=== PATIENT | female | born 1965 | race Caucasian/White ===

== ENCOUNTER → 2020-07-07 16:47 | Outpatient (CLI) | payer BC, SELFPAY ==
--- NOTE | ~2020-07-07 | XR_ITS ---
EXAMINATION: [id number] EXAM DATE: 07/07/2020 17:03 INDICATION: Initial encounter following injury, with pain of the cervical spine since 2004, progress ing. TECHNIQUE: Cervical spine frontal, lateral, lateral swimmers, and open-mouth odontoid projections. C omparison is made to prior examination from 11/04/2006. FINDINGS: There is moderate disc disease at C5-6 and 6-7, mild at C4-5. Straightening of normal cerv ical lordosis could be positional or spasm. There is some bulky upper cervical facet arthropathy. The re is evidence of some amount of lower cervical neural foraminal stenosis due to uncovertebral joint arthropathy. Lung apices are clear. The odontoid process is intact. The lateral masses of C1 line up with C2. Prevertebral soft tissue and pre-dens space are within normal limits. There has been progre ssion in spondylosis compared to 2006. IMPRESSION: 1. Moderate cervical spondylosis. Reviewed, dictated and finalized at location A. [employer]
== END ==
PROVIDERS: PCP Physician Assistant; Visit Provider Physician Assistant
DX: M47.22 Other spondylosis with radiculopathy, cervical region (principal)
CPT/HCPCS: 72040

== ENCOUNTER 2021-03-26 15:31 | Emergency (ER) | payer BC, SELFPAY ==
[2021-03-26 15:41] VITALS: BP 139/91; PULSE 88; RESP 18; TEMP 36.8; O2SAT 99
--- NOTE | 2021-03-26 16:10 | ED.SKABFB ---
HPI - Skin/Abscess/Foreign Bdy General Chief complaint: Skin/Abscess/Foreign Body Stated complaint: Tick Bite Time Seen by Provider: 03/26/21 16:10 Source: patient Mode of arrival: ambulatory Limitations: no limitations History of Present Illness HPI narrative: Allison Bangura is a 55 yo feale with PMH of HTN, DM, depression, who comes to [facility] with complaints of a circular rash around tick bite area that occurred while they are on vacation in [place] last this last week-was hiking with a backpack and discovered yesterday in the shower a tick on her left upper chest. She now has a small 1 x 2 area that is tender but not indurated. Her primary doctor told her to come to urgent care Related Data Home Medications Medication Instructions Recorded Confirmed amlodipine 5 mg tablet 5 mg PO DAILY 08/27/19 09/22/20 blood sugar diagnostic #10 each 08/27/19 09/22/20 blood-glucose meter #1 each 08/27/19 09/22/20 cyclobenzaprine 10 mg tablet 10 mg PO ONCE tablet 08/27/19 09/22/20 enalapril maleate 10 mg tablet 10 mg PO BID 08/27/19 09/22/20 lancets 30 gauge #25 each 08/27/19 09/22/20 metformin 500 mg tablet 500 mg PO BID 08/27/19 09/22/20 venlafaxine 150 mg 150 mg PO DAILY 08/27/19 09/22/20 capsule,extended release 24 hr Allergies Allergy/AdvReac Type Severity Reaction Status Date / Time Penicillins Allergy Unknown HIVES Verified 09/22/20 09:05 CHILD Sulfa (Sulfonamide Allergy Unknown HIVES Verified 09/22/20 09:05 Antibiotics) CHILD Review of Systems Review of Systems: CONSTITUTIONAL: Denies fever, chills, sweats. EYES: Denies visual changes, redness, discharge. ENT: Denies rhinorrhea, congestion, sore throat, otalgia. CARDIOVASCULAR: Denies chest pain, palpitations, edema. RESPIRATORY: Denies dyspnea, wheezing, cough GASTROINTESTINAL: Denies abdominal pain, nausea, vomiting, diarrhea. GENITOURINARY: Denies dysuria, hematuria, abnormal discharge SKIN: Denies rash or itching. Rash from tick bite NEUROLOGIC: Denies numbness, or focal weakness. PSYCHIATRIC: Denies anxiety or depression. [facility] Past Medical History Medical History (Updated 03/26/21 @ 16:21 by Radha Vieira CNP) Diabetes mellitus type 2 in nonobese Headache Hypertension Estevez syndrome Surgical History Surgical History H/O breast surgery History of total hysterectomy History of tubal ligation Family History Family History Mother Cerebrovascular accident Diabetes mellitus Hypertension Osteoporosis Migraine Depression Heart disease Hyperlipidemia Mother Cerebrovascular accident Family history of type 2 diabetes mellitus Sibling Family history of malignant neoplasm of cervix Other Carcinoma of colon Family history of lung cancer Family history of malignant neoplasm of breast Family history of malignant neoplasm of urinary bladder Family history of malignant neoplasm of uterus Social History Social History Years smoked: 38 Smoking status: Current every day smoker Tobacco type: cigarettes Second hand tobacco smoke exposure: Yes Alcohol intake: current Comments At time of signature, I agree with nursing past medical, surgical, social and family history. There is no relevant family history pertinent to the presenting complaint. Exam Narrative: GENERAL: This is a well-nourished, well-developed patient, in mild distress. HEAD: normocephalic, atraumatic. EYES: Sclera clear/white. Vision is grossly intact. EARS: External ears normal, Hearing grossly intact. NOSE: External nose normal without nasal discharge, nares without redness, no rhinorrhea. THROAT: Mucous membranes moist, NECK: Neck supple, CARDIOVASCULAR: Regular rate and rhythm without murmurs, gallops, or rubs. RESPIRATORY: Clear to auscultation. Breath sounds equal
== END 2021-03-26 16:38 | disposition home or self-care (01) ==
PROVIDERS: Emergency Provider Nurse Practitioner; PCP Physician Assistant
DX: S20.362A Insect bite (nonvenomous) of left front wall of thorax, initial encounter (principal); W57.XXXA Bitten or stung by nonvenomous insect and other nonvenomous arthropods, initial encounter; F17.210 Nicotine dependence, cigarettes, uncomplicated; E11.9 Type 2 diabetes mellitus without complications; I10 Essential (primary) hypertension
CPT/HCPCS: 99213; G0463

== ENCOUNTER → 2021-12-24 11:17 | Outpatient (CLI) | payer BC, SELFPAY ==
--- NOTE | ~2021-12-24 | MM_ITS ---
EXAMINATION: MM screening rhoda BI w ashely HISTORY: Screening mammogram TECHNIQUE: Craniocaudal and mediolateral oblique 3-D tomosynthesis images were obtained and synthetic 2-D images were generated. CAD analysis was submitted and interpreted. COMPARISON: 02/01/2019 bilateral diagnostic mammography 06/20/2017 bilateral diagnostic mammogram and Limited bilateral breast ultrasound 05/12/2017 bilateral screening mammogram BREAST PARENCHYMAL COMPOSITION: There are scattered areas of fibroglandular density. FINDINGS: Right breast: New circumscribed 2 x 5 mm opacity at mid depth in the inner aspect of the lower outer right breast. Diagnostic right mammogram and right breast ultrasound examination are recommended. Left breast: Several stable up to 8 mm or smaller circumscribed low-density opacities are noted in the outer, mid and inner left breast, benign in appearance. No suspicious mass, architectural distortion, malignant calcification, skin thickening or retraction of the left breast is detected. IMPRESSION: 1. New circumscribed 2 x 5 mm opacity at mid depth in inner aspect of lower outer right breast 2. Diagnostic right mammogram and right breast ultrasound examination are recommended BI-RADS Category 0: Incomplete: Needs additional imaging evaluation. Reviewed, dictated and finalized at location A. IMPRESSION: 1. New circumscribed 2 x 5 mm opacity at mid depth in inner aspect of lower out er right breast 2. Diagnostic right mammogram and right breast ultrasound examination are recom mended BI-RADS Category 0: Incomplete: Needs additional imaging evaluation.
== END ==
PROVIDERS: PCP Physician Assistant; Visit Provider Physician Assistant
DX: Z12.31 Encounter for screening mammogram for malignant neoplasm of breast (principal); F17.200 Nicotine dependence, unspecified, uncomplicated; R92.8 Other abnormal and inconclusive findings on diagnostic imaging of breast
CPT/HCPCS: 77063; 77067

== ENCOUNTER → 2022-03-30 10:20 | Outpatient (CLI) | payer BC, SELFPAY ==
--- NOTE | ~2022-03-30 | MMUS_ITS ---
EXAMINATION: MM diagnostic rhoda RT w ashely, US breast RT limited HISTORY: New circumscribed 2 x 5 mm opacity at mid depth in inner aspect of lower outer right breast reported on 12/24/2021 screening mammogram TECHNIQUE: Full field and spot ML, MLO and CC 3-D tomosynthesis images of the right breast were perfo rmed and synthetic 2-D images were generated. CAD analysis was submitted and interpreted. High resolu tion upper outer and lower-outer quadrant right breast ultrasound was performed. COMPARISON: 12/24/2021 bilateral screening mammogram BREAST PARENCHYMAL COMPOSITION: There are scattered areas of fibroglandular density. FINDINGS: MAMMOGRAPHIC FINDINGS: Approximately 3 x 8.5 mm circumscribed opacity is noted overlying the lateral subareolar area. Stable approximately 2 x 5 mm opacity at mid depth in inner aspect of lower outer right breast. ULTRASOUND: In the lateral subareolar area there is a multi septated cyst measuring approximately 7 x 4.4 x 8.4 m m, without internal vascularity, with through transmission, benign. No suspicious mass or shadowing is detected elsewhere in the upper outer or lower outer quadrants. IMPRESSION: 1. Benign finding 2. Routine annual mammographic screening is recommended BI-RADS Category 2: Benign finding(s). Reviewed, dictated and finalized at location A. IMPRESSION: 1. Benign finding 2. Routine annual mammographic screening is recommended BI-RADS Category 2: Benign finding(s).
== END ==
PROVIDERS: PCP Physician Assistant
DX: R92.8 Other abnormal and inconclusive findings on diagnostic imaging of breast (principal)
CPT/HCPCS: 76642; 77061; 77065; G0279

== ENCOUNTER 2023-06-17 13:01 | Emergency (ER) | payer BC, SELFPAY ==
--- NOTE | 2023-06-17 13:05 | ED.URI ---
HPI - URI/Sore Throat General Chief Complaint: Upper Respiratory Infection Stated Complaint: headache,left eye irritation,cough Time Seen by Provider: 06/17/23 13:19 Source: patient and RN notes reviewed Mode of arrival: ambulatory Limitations: no limitations History of Present Illness HPI Narrative: 57-year-old female presents concern for 6 day history of cough, nasal congestion and rhinorrhea. She reports she has taking cold medicine twice over the last week without relief. She reports chills and sweats without fever. She reports she feels like her cold is moving to her chest. MD elicited complaint: cough Related Data Home Medications Medication Instructions Recorded Confirmed blood sugar diagnostic (AktivitoTouch #10 ea 08/27/19 06/17/23 Ultra Blue Test Strip) blood-glucose meter (AktivitoTouch #1 ea 08/27/19 06/17/23 Ultra2 Meter kit) lancets 30 gauge (AktivitoTouch Delica #25 ea 08/27/19 06/17/23 Lancets) metformin 500 mg tablet 500 mg PO BID 08/27/19 06/17/23 enalapril maleate 10 mg tablet 10 mg PO DAILY 09/20/22 06/17/23 Allergies Allergy/AdvReac Type Severity Reaction Status Date / Time Penicillins Allergy Unknown HIVES Verified 09/20/22 08:57 CHILD Sulfa (Sulfonamide Allergy Unknown HIVES Verified 09/20/22 08:57 Antibiotics) CHILD Review of Systems Review of Systems: CONSTITUTIONAL: Denies malaise, fever. Reports chills, sweats EYES: Denies visual changes, redness, or discharge. ENT: Reports rhinorrhea, congestion. Denies sinus pain, otalgia and sore throat. CARDIOVASCULAR: Denies chest pain, palpitations, or edema. RESPIRATORY: Reports cough and chest congestion. Denies dyspnea. GASTROINTESTINAL: Denies abdominal pain, nausea, vomiting, diarrhea SKIN: Denies rash or itching. MUSCULOSKELETAL: Denies myalgia. NEUROLOGIC: Reports headache. All systems reviewed & are unremarkable except as noted in HPI and below PMFSH Past Medical History Medical History Diabetes mellitus type 2 in nonobese Headache Hypertension Estevez syndrome Tobacco abuse Surgical History Surgical History H/O breast surgery History of total hysterectomy History of tubal ligation Family History Family History Mother Cerebrovascular accident Diabetes mellitus Hypertension Osteoporosis Migraine Depression Heart disease Hyperlipidemia Mother Cerebrovascular accident Family history of type 2 diabetes mellitus Sibling Family history of malignant neoplasm of cervix Other Carcinoma of colon Family history of lung cancer Family history of malignant neoplasm of breast Family history of malignant neoplasm of urinary bladder Family history of malignant neoplasm of uterus Social History Social History Years smoked: 38 Smoking status: Current every day smoker Tobacco type: cigarettes Second hand tobacco smoke exposure: Yes Alcohol intake: current Comments At time of signature, agree with nursing past medical, surgical, social and family history. There is no relevant family history pertinent to the presenting complaint Exam Narrative: GENERAL: Well-appearing, well-nourished, and in no acute distress. HEAD: Normocephalic EYES: PERRLA, conjunctivae clear ENT: Nares clear. Mucous membranes moist. TM pearly carpenter with sharp light reflex bilaterally; no tragal tenderness. Oropharynx not erythematous without lesions. Tonsils not enlarged and without exudate, no drooling, no hoarseness, no trismus, uvula midline. NECK: Supple. No lymphadenopathy CHEST: Clear to auscultation, breath sounds equal. No wheezing, rhonchi, rales, or stridor. No respiratory distress, speaks in full sentences. HEART: Regular rate and rhythm. No murmur heard. SKIN: Warm, dry, no rash.
[2023-06-17 13:13] VITALS: BP 179/100; PULSE 88; RESP 16; TEMP 36.8; O2SAT 99
[2023-06-17 13:14] VITALS: BP 179/100; PULSE 88; RESP 16; TEMP 36.8; O2SAT 99
== END 2023-06-17 13:32 | disposition home or self-care (01) ==
PROVIDERS: Emergency Provider Nurse Practitioner; PCP Physician Assistant
DX: J40 Bronchitis, not specified as acute or chronic (principal); F17.210 Nicotine dependence, cigarettes, uncomplicated; E11.9 Type 2 diabetes mellitus without complications; I10 Essential (primary) hypertension
CPT/HCPCS: 99213; G0463

== ENCOUNTER 2023-10-03 12:19 | Outpatient (CLI) | payer OTHER, SELFPAY ==
--- NOTE | ~2023-10-03 | CT_ITS ---
CT Scan of the Chest without Contrast: Clinical Indication: Lung cancer screening, nicotine dependence Technique: Contiguous sections were acquired throughout the chest without intravenous contrast. Dose reduction technique was used on this scan by utilizing automated exposure control and iterative recon struction technique. The dose-length product (DLP) was 133.35 mGy-cm. Findings: There is no evidence of any significant mediastinal, hilar or axillary lymphadenopathy. The mediastin al soft tissues appear normal. There is no evidence of pleural or pericardial effusion. The lungs are clear. No pulmonary nodules or infiltrates are noted. Images through the upper abdomen reveal no abnormalities. Impression: Lung RADS 1: Negative. 12 month follow-up screening CT advised. Reviewed, dictated and finalized at location . Impression: Lung RADS 1: Negative. 12 month follow-up screening CT advised.
== END 2023-10-03 12:20 | disposition home or self-care (01) ==
LOC: ANHIMG 12:20
PROVIDERS: PCP Physician Assistant; Visit Provider Physician Assistant
DX: Z12.2 Encounter for screening for malignant neoplasm of respiratory organs (principal); Z87.891 Personal history of nicotine dependence
CPT/HCPCS: 71271

== ENCOUNTER 2023-10-29 08:00 | Outpatient (CLI) | payer OTHER, SELFPAY ==
--- NOTE | ~2023-10-29 | MR_ITS ---
EXAMINATION: MR brain/brain stem wo con DATE: 10/29/2023 08:53 INDICATION: Disorientation. Acute confusion. TECHNIQUE: Magnetic resonance imaging (MRI) of the brain and brainstem was performed without intraven ous contrast. COMPARISON: Brain MRI 02/26/2016 FINDINGS: There is no intracranial hemorrhage, acute infarction, or abnormal intracranial mass lesion . There are scattered areas of nonspecific increased T2-weighted signal intensity in the cerebral whi te matter. The ventricles are normal in size. There is minimal mucosal thickening in sphenoid sinus. The orbits are normal. The mastoid air cells are normal. IMPRESSION: 1. Mild nonspecific cerebral white matter disease, which likely represents chronic small vessel ische humphrey disease, worsened from 02/26/2016. Reviewed, dictated and finalized at location E. IMPRESSION: 1. Mild nonspecific cerebral white matter disease, which likely represents mat maker felicity small vessel ischemic disease, worsened from 02/26/2016.
== END 2023-10-29 08:01 ==
LOC: MICIMG 08:01
PROVIDERS: PCP Physician Assistant; Visit Provider Physician Assistant
DX: R41.0 Disorientation, unspecified (principal); R90.82 White matter disease, unspecified
CPT/HCPCS: 70551

== ENCOUNTER 2024-06-05 17:33 | Emergency (ER) | payer OTHER, SELFPAY ==
--- NOTE | 2024-06-05 17:37 | ED_ITS ---
HPI - URI/Sore Throat General Chief Complaint: Upper Respiratory Infection Stated Complaint: Sinus Time Seen by Provider: 06/05/24 17:37 Source: patient Mode of arrival: ambulatory Limitations: no limitations History of Present Illness HPI Narrative: Patient is a 58-year-old female who presents with vertigo, vomiting and diarrhea started and resolved yesterday followed by headache, chills, fatigue, nasal congestion, sore throat, and cough has started today. Has not taken anything for symptoms Related Data Home Medications Medication Instructions Recorded Confirmed metformin 500 mg tablet 500 mg PO BID 08/27/19 06/05/24 enalapril maleate 10 mg tablet 10 mg PO DAILY 09/20/22 06/05/24 Allergies Allergy/AdvReac Type Severity Reaction Status Date / Time Penicillins Allergy Unknown HIVES Verified 06/05/24 18:04 CHILD Sulfa (Sulfonamide Allergy Unknown HIVES Verified 06/05/24 18:04 Antibiotics) CHILD Review of Systems Review of Systems: All systems reviewed & are unremarkable except as noted in HPI and below Constitutional: Constitutional: Denies body ache(s), Reports chills, Denies fatigue, Denies fever(s), Reports headache(s), Denies malaise and Denies weakness Eyes: Eyes: Denies blurry vision, Denies itchy eyes and Denies loss of vision ENT: Denies otalgia, Denies headache(s), Reports nasal congestion, Denies sinus pain and Reports sore throat Cardiovascular: Cardiovascular: Denies chest pain, Denies irregular heart rhythm and Denies dyspnea Respiratory: Respiratory: Reports cough and Denies dyspnea Gastrointestinal: Gastrointestinal: Denies abdominal pain, Reports diarrhea, Denies nausea and Reports vomiting Musculoskeletal: Musculoskeletal: Denies back pain, Denies myalgias and Denies arthralgias Integumentary/Breasts: Skin/Breast: Denies pruritus and Denies rash Neurologic: Reports vertigo, Denies headache(s), Denies loss of vision and Denies weakness Psychiatric: Psychiatric: Reports no additional psychiatric complaints Endocrine: Endocrine: Denies fatigue Allergic/Immunologic: Allergic/Immunologic: Denies itchy eyes PMFSH Past Medical History Medical History Diabetes mellitus type 2 in nonobese Headache Hypertension Estevez syndrome Tobacco abuse Surgical History Surgical History H/O breast surgery History of total hysterectomy History of tubal ligation Family History Family History Mother Cerebrovascular accident Diabetes mellitus Hypertension Osteoporosis Migraine Depression Heart disease Hyperlipidemia Mother Cerebrovascular accident Family history of type 2 diabetes mellitus Sibling Family history of malignant neoplasm of cervix Other Carcinoma of colon Family history of lung cancer Family history of malignant neoplasm of breast Family history of malignant neoplasm of urinary bladder Family history of malignant neoplasm of uterus Social History Social History Years smoked: 38 Smoking status: Current every day smoker Tobacco type: cigarettes Second hand tobacco smoke exposure: Yes Alcohol intake: current Comments At time of signature, agree with nursing past medical, surgical, social and family history. There is no relevant family history pertinent to the presenting complaint. Exam Const: General: cooperative, healthy appearing, comfortable, no acute distress and well nourished Nutritional Appearance: well nourished Orientation/consciousness: patient oriented x3 Limitations: no limitations HENMT: Head: normal to inspection, normocephalic and atraumatic Ears: hearing grossly normal bilaterally, external ears normal, TM's normal bilaterally, EAC's normal and no periauricular adenopathy Face/Nose/Sinus: Normal external nose present, Abnormal mucous membranes and turbinates present erythematous bilateral and diffuse, normal facial exam, sinuses nontender and face symmetric Face and sinus: normal facial exam, sinuses nontender and face symmetric Mouth: Yes Normal oral and palatal mucosa present, Yes lip normal, Yes tongue normal, Yes Normal salivary glands and ducts present, Yes oropharynx normal and Yes moist mucous membranes Teeth and gingiva: dentition normal Throat: posterior oropharynx normal, tonsils normal and uvula midline Eyes: General: appearance normal, both eyes and all related structures Alignment and Position: alignment normal and position normal Periorbital: periorbital findings normal Eyelids: eyelids normal Pupils: Equal, round and reactive pupils present Neck: Neck: normal visual inspection, full ROM, no lymphadenopathy and supple Chest: Chest palpation & inspection: normal inspection of the chest and normal palpation of entire chest wall Resp: Effort & Inspection: normal respiratory effort and able to speak in complete sentences Auscultation: clear to auscultation bilaterally, no crackles, no rales, no rhonchi and no wheezes Cardio: Rate: regular rate Rhythm: regular rhythm Heart sounds: S1 normal heart sound present and S2 normal heart sound present GI: Inspection: normal to inspection Skin: General skin exam: normal color and no rashes or lesions noted Neuro: General: patient oriented x3 and moves all extremities Cranial nerves: Yes Equal, round and reactive pupils present Speech: normal speech Gait exam (Neuro): Normal gait present Extrem: General: normal to inspection, full ROM and no edema Psych: Appearance: grossly normal and well kempt Mental Status: mental status grossly normal Speech and movement: Normal speech and movement present Affect: normal affect Attitude: cooperative Thought process: Normal thought process present Course Course Emergency Course: Patient is aware of diagnosis, understands and agrees to treatment plan. Ant icipatory guidance given. Patient agrees to follow-up as directed and is aware of reasons to seek care at the emergency department. Portions of this record may have been created with voice recognition software Level of Care: Express Care Visit Vital Signs Vital signs: Vital Signs Temperature 36.2 C L 06/05/24 17:43 Pulse Rate 98 06/05/24 17:43 Respiratory Rate 16 06/05/24 17:43 Blood Pressure 158/93 H 06/05/24 17:43 Pulse Oximetry 99 06/05/24 17:43 Oxygen Delivery Room Air 06/05/24 17:43 Temperature 36.2 C L 06/05/24 17:43 Pulse Rate 98 06/05/24 17:43 Respiratory Rate 16 06/05/24 17:43 Blood Pressure 158/93 H 06/05/24 17:43 Pulse Oximetry 99 06/05/24 17:43 Oxygen Delivery Room Air 06/05/24 17:43 Reviewed MDM - URI/Sore Throat MDM Narrative Medical decision making narrative: Discharge instructions reviewed with patient, as well as provided in writing per nursing staff. The instructions also include specific and strict return/GO TO THE ER as well as f/u information. All questions have been answered, and the patient deny any further questions with discharge and discharge plan. Differential diagnosis considered: Gottlieb virus, strep pharyngitis, allergic rhinitis, upper respiratory tract infection, sinusitis, rhinosinusitis, nasopharyngitis. viral pharyngitis, otitis media, otitis externa, otitis effusion, foreign body, cerumen impaction, viral syndrome, and influenza.? Exam findings show no acute concerns or changes; patient is non-toxic appearing and is in no distress.? Patient is appropriate for outpatient treatment and follow- up.? Medical Records Attestation: I reviewed the patient's medical records. Lab Data Attestation: I reviewed the patient's lab results. Labs: Lab Results 06/05/24 Range/Units 18:17 POC Influenza A Ag Negative (Negative) POC Influenza B Ag Negative (Negative) POC SARS CoV-2 Ag Negative (Negative) Discharge Plan Discharge Clinical Impression: Upper respiratory infection Qualifiers: URI type: acute nasopharyngitis (common cold) Qualified Code(s): J00 - Acute nasopharyngitis [common cold] Patient Disposition: Home, Self-Care Condition: Stable Instructions: Upper Respiratory Infection (ED) Additional Instructions: Your Covid and flu are both negative Your symptoms are likely due to a viral illness, which is not treated with antibiotics. Viral symptoms can be present for up to a few weeks. -Alternate Tylenol and Motrin per package directions for fever or pain. -Antihistamine medication such as Benadryl/Zyrtec at night and Claritin/Shital during the day can help improve symptoms. -Use Flonase twice a day for 5 days then daily to help reduce the inflammation and dry up your sinuses. -You can also use Sudafed behind the pharmacy counter(12 or 24 hour). Be sure to drink plenty of water with these medications at least 8 ounces with every dose and it is important to drink 8 to 10 glasses of water per day. Water is a natural decongestant -Eat and drink things that are easy to swallow, like tea or soup, or popsicles. -Oral rinses such as: Salt water gargles and/or may use topical anesthetic (eg. Chloraseptic spray) or lozenges to relieve dryness or throat pain). -Frequent hand washing or hand setter helper is one of the best ways to prevent spread of infection. -Using a vaporizer or humidifier at night will also help thin secretions and help with coughing up phlegm. -Follow up with primary care provider in 3-5 days if condition is not improving - For new or worsening symptoms go directly to the nearest ER Your blood pressure was elevated above 120/80 today at Urgent Care. This puts you above the threshold for follow up visit with a primary care provider. High blood pressure does not usually cause any symptoms, however it may lead to kidney failure, stroke, heart disease just to name a few if untreated . Many people are anxious when seeing a provider or nurse. As a result, you are not diagnosed with hypertension at this time unless your blood pressure is persistently high at two office visits at least one week apart. Some things that can help lower blood pressure are lifestyle modifications, such as light exercise, decreased salt in diet, and weight loss. It is important to follow up with a PCP about this within 1 week. Prescriptions: New benzonatate 100 mg capsule 100 mg PO BID PRN (Reason: cough) Qty: 14 0RF fluticasone propionate [Flonase Allergy Relief] 50 mcg/actuation spray,suspension 1 spray intranasal DAILY Qty: 16 0RF Rx Instructions: administer into each nostril loratadine 10 mg tablet 10 mg PO DAILY Qty: 30 0RF No Action metformin 500 mg tablet 500 mg PO BID enalapril maleate 10 mg tablet 10 mg PO DAILY Follow-up/Referrals: Parent,ESHA Reyes [Primary Care Provider] - 3 Days Stand Alone Forms: Work/School Release IP Time of Disposition: 18:45
[2024-06-05 17:43] VITALS: BP 158/93; PULSE 98; RESP 16; TEMP 36.2; O2SAT 99
[2024-06-05 18:20] LABS: EDCOVIDSCREEN Negative (Negative); EDINFLUASCREEN Negative (Negative); EDINFLUBSCREEN Negative (Negative)
== END 2024-06-05 18:48 | disposition home or self-care (01) ==
PROVIDERS: Emergency Provider Nurse Practitioner Family; PCP Physician Assistant
DX: J00 Acute nasopharyngitis [common cold] (principal); Z20.822 Contact with and (suspected) exposure to COVID-19; F17.210 Nicotine dependence, cigarettes, uncomplicated; E11.9 Type 2 diabetes mellitus without complications; Z79.84 Long term (current) use of oral hypoglycemic drugs; I10 Essential (primary) hypertension; Z15.09 Genetic susceptibility to other malignant neoplasm
CPT/HCPCS: 87426; 87804; 99213; G0463